=== PATIENT | female | born 1990 | race Two or more races ===

== ENCOUNTER 2024-01-25 12:01 | Emergency (ER) | payer OTHER, SELFPAY ==
[2024-01-25 12:08] VITALS: BP 132/87
--- NOTE | 2024-01-25 12:48 | ED.GENMED ---
History of Present Illness
General
Chief Complaint: Skin Problem
Time Seen by Provider: 01/25/24 12:36
Travel History
Have you had any contact with someone who has COVID-19?: No
Do you have any symptoms of coronavirus? Fever > 100 degrees, chills, cough, shortness of breath, sore throat, loss of taste or smell, muscle aches, or headache?: No
History of Present Illness
History of Present Illness:
33-year-old female with history of diet-controlled diabetes presents to the emergency department for evaluation of a painful/burning rash to the anterior and posterior neck traveling to the right upper arm for the past 6 days. She was seen in
urgent care 2 days after the onset and started on 1 g valacyclovir as well as prednisone 20 mg. She is concerned the rash continues to spread. Denies any fevers or chills. Did have chickenpox as a child
Review of Systems
Review of Systems
Allergies reviewed?: Yes
All Other Systems: ROS reviewed and negative except as documented in HPI and ROS
Phy Exam
Physical Exam
Physical Exam:
GEN: Well appearing, NAD, WDWN
HEENT: Oral mucosa moist, no scleral icterus
Cardiac: Regular rate
Lung: No respiratory distress, no tachypnea
MSK: No gross deformity or injuries
Skin: Good color, no pallor or jaundice. Cluster of vesicular lesions on erythematous base to the right anterior and posterior neck traveling to the right upper arm, abruptly stops at the midline consistent with zoster
Neuro: AO x3, moves all extremities freely
Psych: Calm, cooperative
Course
Vital Signs
Initial and Last Documented VS:
Initial Vital Signs
Temp Pulse Resp BP Pulse Ox
98.2 F 93 20 132/87 100
01/25/24 12:08 01/25/24 12:08 01/25/24 12:08 01/25/24 12:08 01/25/24 12:08
Last Documented Vital Signs
Temp Pulse Resp BP Pulse Ox
98.2 F 93 20 132/87 100
01/25/24 12:08 01/25/24 12:08 01/25/24 12:08 01/25/24 12:08 01/25/24 12:08
MDM/Problems Addressed
MDM/Problems Addressed:
Patient already on antivirals and steroids at this point. Will prescribe gabapentin and opiates for pain relief purposes, no evidence for secondary infection
*Critical Care Note
Total Time (30-74mins, 75-104mins- exclusive of procedures): Not Applicable
ED Attending Note
-
Portions of this chart may have been created with voice recognition software.� Occasional wrong word or��sound alike� substitutions may have occurred due to the inherent limitations of voice recognition software.
Discharge Plan
Departure
Patient Disposition: Home (Routine Discharge)
Date of Disposition: 01/25/24
Time of Disposition: 12:50
Patient with high blood pressure during this ER visit?: No
Discharge Problem:
Herpes zoster
Instructions: Shingles (DC)
Prescriptions:
New
tramadol 50 mg tablet
50 mg PO HS PRN (Reason: Pain) Qty: 5 0RF
gabapentin 300 mg capsule
300 mg PO TID 10 Days Qty: 30 0RF
Interventions
Interventions:
*ED COVID-19 Vaccine History Last Done: 01/25/24 12:08
*Nursing Disposition Last Done: 01/25/24 13:13
Discharge Date and Time
Discharge Date/Time: 01/25/24 13:15
Print Language: [id number]
== END 2024-01-25 13:15 | disposition home or self-care (01) ==
LOC: EMR 12:01
PROVIDERS: EMERGENCY PHYSICIAN Emergency Medicine; FAMILY PHYSICIAN Family Medicine
DX: B02.9 Zoster without complications (principal); E11.9 Type 2 diabetes mellitus without complications
CPT/HCPCS: 99282